=== PATIENT | female | born 1965 | race Hispanic/Latino ===

== ENCOUNTER → 2025-01-31 | Emergency (ER) | payer OTHER, MEDICARE ==
[~2025-01-31] VITALS: Ht 152.4 cm; Wt 45.4 kg
[2025-01-31 14:56] LABS: BASOPHILS # (AUTO) 0.05 K/uL (0.00-0.20); BASOPHILS % (AUTO) 0.7 % (0.0-5.0); EOSINOPHILS # (AUTO) 0.13 K/uL (0.00-0.70); EOSINOPHILS % (AUTO) 1.8 % (0.0-8.0); HEMATOCRIT 29.3 % (36-48); IMMATURE GRANULOCYTE ABSOLUTE 0.11 K/uL (0-1); LYMPHOCYTES # (AUTO) 1.3 K/uL (1.0-4.8); LYMPHOCYTES % (AUTO) 17.8 % (21.0-51.0); MEAN CORPUSCULAR HEMOGLOBIN 29.7 pg (27.0-33.0); MEAN CORPUSCULAR HGB CONC 32.8 g/dL (32.0-36.0); MEAN CORPUSCULAR VOLUME 90.7 fL (79-99); MONOCYTES # (AUTO) 0.4 K/uL (0.1-1.0); MONOCYTES % (AUTO) 6.1 % (3.0-13.0); NEUTROPHILS # (AUTO) 5.2 K/uL (1.8-7.7); NEUTROPHILS % (AUTO) 72.1 % (40.0-77.0); NUCLEATED RED BLOOD CELLS 0.3 % (0.0-0.19); PLATELET COUNT (AUTO) 274 K/uL (130-400); RED BLOOD CELL COUNT(AUTO) 3.23 MIL/uL (4.00-5.50); RED CELL DISTRIBUTION WIDTH 15.4 % (11.0-15.5); WHITE BLOOD COUNT (AUTO) 7.2 K/uL (4.8-10.8)
[2025-01-31 15:04] LABS: CREATININE 0.5 mg/dL (0.5-1.0); POTASSIUM 3.6 mmol/L (3.5-5.1)
[2025-01-31 15:09] LABS: ALBUMIN 3.2 g/dL (3.5-5.0); BILIRUBIN,DIRECT 0.2 mg/dL (0.0-0.3); BILIRUBIN,TOTAL 0.4 mg/dL (0.2-1.0); TOTAL PROTEIN, SERUM 7.7 g/dL (6.0-8.3)
--- NOTE | 2025-01-31 15:16 | HMCIMG ---
Exam Type: CHEST 1VW Clinical Information: cp Comparison: None Findings: Right [id number] pleural effusion. The lungs are clear of infiltrates. The heart is normal in size. The bony and soft tissue structures of the chest are unremarkable. Impression: Right izhnd-[id number] pleural effusion.
--- NOTE | 2025-01-31 15:34 | EKG ---
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
[2025-01-31 15:35] LABS: B-TYPE NATRIURETIC PEPTIDE 136 pg/mL (0-100)
[2025-01-31] MEDS: ondanSETRON 4MG INJ IVP ONE (15:39)
[2025-01-31] MEDS: 0.9%NACL 1000ML 1,000 ML IV ONE (15:39)
[2025-01-31] MEDS: hydroMORPHone 1 MG INJ IVP ONE (15:39)
[2025-01-31 17:04] VITALS: BP 146/61; PULSE 84; RESP 14; TEMP 98.4; O2SAT 96
--- NOTE | 2025-01-31 17:13 | ERN ---
ED Note History of Present Illness Stated Complaint: PAIN STAGE 4 CA Chief Complaint: Generalized Body Aches Time Seen by MD: 14:06 Dictation: 59-year-old female presenting to the emergency department for generalized weakness body aches patient has metastatic bone cancer took hydrocodone today but had breakthrough pain no fever no chest pain or shortness of breath but required EMS transport for pain management to the emergency department. Allergies: Coded Allergies: No Known Drug Allergies (Unverified Allergy, Unknown, 01/31/25) Past Medical History Past Medical History: Cancer Surgical History: None Review of System Dictation Constitutional: Negative for fever,chills, and weight loss Eyes: Negative for injury, pain,redness, and discharge ENT: Negative for injury,pain or swelling Cardiovascular: Negative for chest pain, palpitations, and edema Respiratory: Negative for shortness of breath, cough, and wheezing, Abdomen/GI: Negative for abdominal pain, nausea, vomiting, diarrhea, and constipation Back: Negative for injury and pain : Negative for injury, bleeding and discharge MS/Extremity: Per HPI Skin: Negative for rash, and discoloration Neuro: Negative for headache, weakness, numbness, tingling, and seizure Psych: Negative for suicide ideation, homicidal ideation, and hallucinations Initial Vital Sign VS Vital Signs Date Time Temp Pulse Resp B/P (MAP) Pulse Ox O2 Delivery O2 Flow Rate FiO2 01/31/25 14:14 72 20 108/62 96 01/31/25 15:36 98.8 Room Air* 0 21 Physical Exam Dictation General: awake, alert, appears chronically ill Head/Face: Normocephalic, atraumatic Eyes: PERRL, EOMI, vision at baseline ENT: oral cavity clear, TMs clear, no signs of infection Neck: Trachea midline, supple, no nuchal rigidity Cardiovascular: RRR, normal S1/S2, No MRGs, no JVD Respiratory: CTAB, no respiratory distress, No rales or wheezes Abdomen: Soft, non-tender, non-distended, normal bowel sounds, no guarding or rebound. Skin: Warm, dry, normal turgor, no rash MS/Extremity: Pulses equal, no cyanosis, neurovascular intact, FROM Neuro: COAx4, GCS 15, strength 5/5, CN 2-12 intact, normal cerebellar exam, normal gait, Psych: Normal behavior, mood, and affect normal Results (Laboratory/Radiology) Laboratory/Radiology Laboratory Tests Test 01/31/25 14:49 White Blood Count 7.2 K/uL (4.8-10.8) Red Blood Count 3.23 MIL/uL (4.00-5.50) L Hemoglobin 9.6 g/dL (12.0-16.0) L Hematocrit 29.3 % (36-48) L Mean Corpuscular Volume 90.7 fL (79-99) Mean Corpuscular Hemoglobin 29.7 pg (27.0-33.0) Mean Corpuscular Hemoglobin Concent 32.8 g/dL (32.0-36.0) Red Cell Distribution Width 15.4 % (11.0-15.5) Platelet Count 274 K/uL (130-400) Mean Platelet Volume 9.2 fL (7.5-10.5) Immature Granulocyte % (Auto) 1.5 % (0-1) H Neutrophils (%) (Auto) 72.1 % (40.0-77.0) Lymphocytes (%) (Auto) 17.8 % (21.0-51.0) L Monocytes (%) (Auto) 6.1 % (3.0-13.0) Eosinophils (%) (Auto) 1.8 % (0.0-8.0) Basophils (%) (Auto) 0.7 % (0.0-5.0) Neutrophils # (Auto) 5.2 K/uL (1.8-7.7) Lymphocytes # (Auto) 1.3 K/uL (1.0-4.8) Monocytes # (Auto) 0.4 K/uL (0.1-1.0) Eosinophils # (Auto) 0.13 K/uL (0.00-0.70) Basophils # (Auto) 0.05 K/uL (0.00-0.20) Absolute Immature Granulocyte (auto 0.11 K/uL (0-1) Nucleated Red Blood Cells 0.3 % (0.0-0.19) H Sodium Level 139 mmol/L (136-145) Potassium Level 3.6 mmol/L (3.5-5.1) Chloride Level 106 mmol/L (101-111) Carbon Dioxide Level 27 mmol/L (21-32) Blood Urea Nitrogen 12 mg/dL (7-18) Creatinine 0.5 mg/dL (0.5-1.0) Glomerular Filtration Rate Calc 107 mL/min (>90) Random Glucose 120 mg/dL (70-105) H Total Calcium 8.0 mg/dL (8.5-10.1) L Total Bilirubin 0.4 mg/dL (0.2-1.0) Direct Bilirubin 0.2 mg/dL (0.0-0.3) Aspartate Amino Transf (AST/SGOT) 77 U/L (10-37) H Alanine Aminotransferase (ALT/SGPT) 25 U/L (12-78) Alkaline Phosphatase 132 U/L (50-136) Troponin I High Sensitivity 11 ng/L (4-50) B-Type Natriuretic Peptide 136 pg/mL (0-100) H Total Protein 7.7 g/dL (6.0-8.3) Albumin 3.2 g/dL (3.5-5.0) L Labs Reviewed?: Yes EKG Comment: Heart rate 78 normal sinus rhythm normal intervals no STEMI ED Course ED Course Orders Procedure Category Date Status Time 12 Lead Ekg Tracing- EKG 01/31/25 Resulted Technical 14:23 B-Type Natriuretic LAB 01/31/25 Complete Peptide 14:23 Basic Metabolic Panel LAB 01/31/25 Complete 14:23 Cbc With Differential LAB 01/31/25 Complete 14:23 Hepatic Function Panel LAB 01/31/25 Complete 14:23 Troponin I High LAB 01/31/25 Complete Sensitivity 14:23 Chest 1vw RAD 01/31/25 Resulted 14:23 Ondansetron 4mg Inj PHA 01/31/25 Complete (Zofran 4mg Inj) 14:30 Hydromorphone 1 Mg PHA 01/31/25 Complete Inj (Dilaudid 1mg Inj 14:30 0.9%Nacl 1000ml (Ns PHA 01/31/25 Complete 1000ml) 14:30 Current Medications Medications (Trade) Dose Ordered Sig/Sesar Route PRN Reason Start Time Stop Time Status Last Admin Dose Admin Hydromorphone HCl (DiLAUDid 1MG INJ) 1 mg ONCE ONCE IVP 01/31/25 14:30 01/31/25 15:21 DC 01/31/25 15:39 Ondansetron HCl (zoFRAN 4MG INJ) 4 mg ONCE ONCE IVP 01/31/25 14:30 01/31/25 15:21 DC 01/31/25 15:39 Sodium Chloride 1,000 ml @ 0 mls/hr ONCE ONCE IV 01/31/25 14:30 01/31/25 15:21 DC 01/31/25 15:39 Vital Signs Date Time Temp Pulse Resp B/P (MAP) Pulse Ox O2 Delivery O2 Flow Rate FiO2 01/31/25 17:04 98.4 84 14 146/61 96 Room Air* 0 01/31/25 16:41 98.2 74 14 129/59 95 Room Air* 0 01/31/25 16:03 78 14 144/57 98 Room Air* 0 01/31/25 15:36 98.8 78 14 154/72 96 Room Air* 0 01/31/25 14:14 72 20 108/62 96 Medical Decision Making MDM MDM: Differential diagnosis: Rationale: Tests considered and ordered secondary to shared decision making include: Previous outside records reviewed: Old ER visits. Risk of complication and/or morbidity or mortality of patient management: None Medications-Per medication reconciliation Need for hospitalization: Patient does not meet criteria for hospitalization. Need for emergency major/minor surgery: No There are no social concerns with this patient. Prescription drug management Prescriptions will include symptomatic care Patient's prior external medical records from other ER visits were reviewed by me as indicated. Prior testing and results from previous visits were reviewed. Prior tests were taken into account with medical decision making and resource utilization, independent historian/historians were used to obtain complete medical history. I independently interpreted the test that were performed, results were reviewed by me and considered findings on radiology if ordered. Medical management and examination interpretation discussions were had by me with other qualified healthcare professionals as indicated for the patient's care. 59-year-old female with metastatic cancer, arrived for breakthrough pain, patient was given IV pain medicine of Dilaudid symptoms improved pain controlled we did cardiac workup and CBC chemistry all electrolytes are relatively stable vitals are stable gave patient option for additional pain management with admission but patient reports she wants to go home instead and patient was discharge. DX & DISP Disposition: Discharge Departure Impression: Primary Impression: Generalized pain Additional Impression: Cancer Condition: Stable Referrals: CODY SMITH MD (PCP) LUIS SCHREIBER MD Jan 31, 2025 17:13
--- NOTE | 2025-01-31 17:30 | NUR ---
pts sister is enroute to pick her up
== END ==
LOC: EDH 14:04
DX: C79.51 Secondary malignant neoplasm of bone (principal); R52 Pain, unspecified
CPT/HCPCS: 99285; 96374; 71045; 96361; 96375; 80076; 84484; 80048; 83880; 85025; 36415; 93005; J1171; J7030; J2405